=== PATIENT | male | born 1965 | race Hispanic/Latino ===

== ENCOUNTER 2016-06-29 13:21 | Emergency (ER) | payer OTHER ==
[2016-06-29] MEDS ORDERED: Ondansetron HCl/PF 4 MG/2 ML Vial ONE (13:57)
[2016-06-29] MEDS ORDERED: Nitroglycerin 2% Ointment 1 INCH/1 GM Packet ONE (13:58)
[2016-06-29] MEDS ORDERED: Morphine Sulfate 2 MG/ML SYRINGE ONE (13:58)
[2016-06-29 14:10] LABS: Hematocrit 36.6 % (42.0-52.0); Red Blood Cell (RBC) Count 3.72 mill/uL (4.70-6.10); White Blood Cell (WBC) Count 6.5 thou/uL (4.8-10.8)
[2016-06-29 14:11] LABS: #Eosinphils 0.2 thou/uL (0.0-0.7); #Lymphocytes 1.2 thou/uL (1.20-3.40); #Monocytes 0.4 thou/uL (0.11-0.59); #Neutrophils 4.7 thou/uL (1.40-6.50); %Basophils 0.8 % (0.0-1.0); %Lymphocytes 17.8 % (21.0-51.0); %Monocytes 5.7 % (0.0-10.0); Mean Platelet Volume 8.1 fL (7.4-10.4)
[2016-06-29 14:12] LABS: #Basophils 0.1 thou/uL (0.0-0.2)
[2016-06-29 14:15] LABS: ALT (SGPT) 17 U/L (0-55); AST (SGOT) 14 U/L (5-34); Alkaline Phosphatase 44 U/L (40-150); Anion Gap 19 mmol/L (10-20); BUN (Urea Nitrogen) 46 mg/dL (8.4-25.7); Bilirubin, Total 0.6 mg/dL (0.2-1.2); Calc. Creatinine Clearance 0 mL/min (70-130); Calcium 7.6 mg/dL (7.8-10.44); Carbon Dioxide 28 mmol/L (22-29); Chloride 93 mmol/L (98-107); Estimated GFR-MDRD 7; Globulin 3.2 g/dL (2.4-3.5); PTT 32.8 SEC (22.9-36.1); Protein, Total 7.1 g/dL (6.0-8.3); Prothrombin Time 14.3 SEC (12.0-14.7); Troponin I 0.025 ng/mL (< 0.028)
[2016-06-29] MEDS ORDERED: Furosemide 40 MG/4 ML VIAL ONE (15:03)
--- NOTE | 2016-06-29 15:03 | RAD ---
CHEST 2 VIEWS: HISTORY: Dyspnea. Chest pain. FINDINGS: The cardiac silhouette is unremarkable. Pulmonary vasculature is upper limits of normal. Mild reti culonodular interstitial prominence is present throughout each lung. There is no confluent airspace consolidation, pneumothorax, or pleural fluid evident. IMPRESSION: Borderline pulmonary vascular congestion without florid edema evident. POS: [facility]
--- NOTE | 2016-06-29 15:42 | ERRECORD ---
[facility] EMERGENCY RECORD HPI CHEST PAIN (14:14 JOHE) CHIEF COMPLAINT: Patient presents for evaluation of chest pain, ongoing. HISTORIAN: History provided by patient, Pt. reports approx. 3 days of constant, sternal, sharp chest pain radiating to the back, without migration. Patient reports pain is constant but worse with deep breathing, and with exertion. Patient says pain was worse last night at dialysis, but did not come to ED then. Patient also reports some cold sweating and nausea when at work the other day, but not currently. Feels heart is beating fast, and has SANDS, orthopnea, and PND. + BLE edema, no leg pain. No F&C, cough or other symptoms reported. No recent travel. No personal or FH of CAD, DVT/PE, or connective tissue disorders reported. LOCATION: Symptoms are localized, most severe in substernal area, Pain radiates, to the back. QUALITY: Pain is sharp in nature, described as stabbing. SEVERITY: Maximum severity of symptoms severe, Currently symptoms are moderate. TIME COURSE: Symptoms are improving, are constant. ASSOCIATED WITH: No associated chills, No associated cough, No associated diaphoresis, No associated fever, No associated nausea, Associated with palpitations, Associated with shortness of breath, No associated trauma, No associated upper respiratory infection, No associated vomiting, Denies any other complaints. EXACERBATED BY: Patient's condition exacerbated by deep breaths, Patient's condition exacerbated by exercise. RELIEVED BY: Patient's condition relieved by rest. HEART SCORE: Patients history is Slightly Suspicious (0), Patients ECG is normal (0), Patients age is greater than 45 and less than 65 (1), Patient has equal to or greater than 3 risk factors or history of atherosclerotic disease (2). WELLS CRITERIA FOR PE: No clinical signs and symptoms of a DVT (0), Patient has, or is likely to have, a primary diagnosis of PE (3), Patient's heart rate is less than 100 (0), Patient has no history of immobilization within 3 days, nor any surgical history within the past 4 weeks (0), Patient has not had an objectively diagnosed PE or DVT previously (0), Patient does not have hemoptysis (0), Patient has not had treatment for malignancy within the last 6 months, nor palliative (0), Total 3. ROS (14:18 JOHE) CONSTITUTIONAL: Historian denies chills, denies fatigue, denies fever, denies malaise, denies night sweats, denies weakness, reports weight loss. EYES: Historian denies eye pain, denies eye redness, denies vision changes. ENT: Historian denies otalgia, denies rhinorrhea, denies sinus pain, denies sore throat. &a-1R&a+25V*p+0X*b1668S*c152B*c15G*c2P*p-0X&a-25V&a+1RName: Ministerio Vanegas : 1965 M50 MedRec: [id number] AcctNum: [id number] Prepared: SatJun 29, 2016 18:49 by Interface Page 1 of 5 pMD [facility] EMERGENCY RECORD CARDIOVASCULAR: Historian reports chest pain, pleuritic, radiation to, the back, Historian denies diaphoresis, reports dyspnea on exertion, reports edema, reports orthopnea, denies syncope, reports palpitations. RESPIRATORY: Historian denies cough, denies shortness of breath, denies sputum, denies stridor, denies wheezing. GI: Historian denies abdominal pain, denies diarrhea, denies nausea, denies vomiting. MUSCULOSKELETAL: Historian denies fall, denies joint redness, denies joint swelling, denies myalgias, denies neck pain. SKIN: Historian denies rash, denies skin changes. NEUROLOGIC: Historian denies dizziness, denies focal weakness, denies gait changes, denies headache, denies paresthesias. HEMO/LYMPHATIC: Historian reports abnormal blood clotting, reports petechiae. NOTES: All systems reviewed, negative except as described above. PAST MEDICAL HISTORY (13:27 BDON) MEDICAL HISTORY: Notes: End state renal disease on dialysis, Flu vaccine not up to date, Tetanus not up to date, Pneumococcal vaccine not up to date, Past medical history includes cardiac history, congestive heart failure, Notes: HEPATITIS C, Notes: BILAT COLLAPSED LUNG, Past medical history includes history of diabetes, Past medical history includes history of hypertension. MALE SURGICAL HISTORY: Dialysis shunt left upper arm, BENIGN MASS REMOVED FROM ABD, LT HAND SX, Surgical history of appendectomy, Surgical history of cholecystectomy, Surgical history of hernia repair. PSYCHIATRIC HISTORY: No previous psychiatric history. SOCIAL HISTORY: Patient drinks socially, rarely, Patient denies drug use, Patient has no smoking history. KNOWN ALLERGIES aspirin iodine CURRENT MEDICATIONS (13:25 BDON) None VITAL SIGNS VITAL SIGNS: BP: 177/102, Pulse: 99, Resp: 18, Pain: 7, O2 sat: 99, Time: 06/29/2016 13:27. (13:27 BDON) BP: 170/93, Pulse: 88, Resp: 18, Pain: 7, O2 sat: 98, Time: 06/29/2016 13:45. (13:45 BDON) BP: 144/75, Pulse: 84, Resp: 16, Temp: 97.7 (Oral), O2 sat: 100, Time: 06/29/2016 14:00. (14:00 BDON) BP: 171/103, Pulse: 88, Resp: 15, O2 sat: 99, Time: 06/29/2016 14:30. (14:30 BDON) BP: 176/93, Pulse: 82, Resp: 15, Pain: 3, O2 sat: 98, Time: 06/29/2016 &a-1R&a+25V*p+0X*[id number]*c152B*c15G*c2P*p-0X&a-25V&a+1RName: Ministerio Vanegas : 1965 M50 MedRec: [id number] AcctNum: [id number] Prepared: SatJun 29, 2016 18:49 by Interface Page 2 of 5 pMD [facility] EMERGENCY RECORD 15:00. (15:00 BDON) BP: 150/77, Pulse: 83, Resp: 15, Pain: 2, O2 sat: 96, Time: 06/29/2016 15:44. (15:44 BDON) BP: 190/95, Pulse: 83, Resp: 16, Pain: 0, O2 sat: 98 on Room Air, Time: 06/29/2016 16:25. (16:25 BDON) BP: 182/97, Pulse: 82, Resp: 14, Pain: 0, Time: 06/29/2016 16:34. (16:34 BDON) BP: 167/100, Pulse: 81, Pain: 0, O2 sat: 97, Time: 06/29/2016 17:21. (17:21 BDON) PHYSICAL EXAM (14:19 JOHE) CONSTITUTIONAL: Vital Signs Reviewed, Patient appears non toxic, Patient alert and oriented to person, place and time. HEAD: Head exam normal, Head exam included findings of head atraumatic, normocephalic. EYES: Eye exam normal, Eye exam included findings of eyelids normal to inspection, Pupils equally round and reactive to light, Extraocular muscles intact, Conjunctiva normal, Sclera normal. ENT: ENT exam normal, Pharynx exam normal, not injected, no swelling, symmetrical, Uvula exam normal, midline, no edema, Mouth exam normal, mucous membranes moist, no drooling, no lesions, no lacerations, no tongue elevation. NECK: Neck exam normal, Neck exam included findings of normal range of motion, Trachea midline, no carotid bruits, no jugular venous distention, no tenderness, no contusions, no ecchymosis. RESPIRATORY CHEST: Respiratory exam included findings of no respiratory distress, Breath sounds not clear, No wheezing, Rales present, No rhonchi, Breath sounds not absent, Tenderness, mild, to the sternum, faint BLL crackles, otherwise CTAB. CARDIOVASCULAR: Cardiovascular assessment normal, Heart rate regular rate and rhythm, Heart sounds normal, Carotids normal, Pedal pulses normal, RRR, no R/M/G. + pulses all ext., no bruits; 2+ edema BLE. ABDOMEN MALE: Abdominal exam normal, Abdominal exam included findings of abdomen nontender, Bowel sounds normal, no distension, no mass, no pulsatile masses, no peritoneal signs, no rigidity, no guarding, no rebound, No abdominal masses or pulsations, no tenderness, no bruits. BACK: Back exam normal, Back exam included findings of normal inspection, range of motion normal. UPPER EXTREMITY: Upper extremity exam normal, Upper extremity exam included findings of inspection normal, Range of motion normal, Motor strength normal, Radial pulse normal. LOWER EXTREMITY: Lower extremity exam normal, Lower extremity exam included findings of inspection normal, Range of motion normal, Motor strength normal, Posterior tibial pulse normal, Pedal pulse normal, Edema present, to bilateral lower extremities, pitting, +2, no calf tenderness, no palpable cords, No calf tenderness, redness or palpable cords. &a-1R&a+25V*p+0X*k9785B*c152B*c15G*c2P*p-0X&a-25V&a+1RName: Ministerio Vanegas : 1965 M50 MedRec: [id number] AcctNum: [id number] Prepared: SatJun 29, 2016 18:49 by Interface Page 3 of 5 D [facility] EMERGENCY RECORD NEURO: Neuro exam normal, Nuvia coma scale 15, Neuro exam findings include patient oriented to person, place and time, Speech normal, Gait normal, Cranial nerves intact, no focal motor deficits, no focal sensory deficits. SKIN: Skin exam normal, Skin exam included findings of skin warm, dry, and normal in color, no rash. EKG INTERPRETATION (13:29 JOHE) 12 LEAD EKG INTERPRETATION: 12 lead EKG interpreted by Emergency Department Physician at time of study, 12 lead EKG shows normal sinus rhythm, Rate (beats per minute): 97, with no ectopics, Compared with previous EKG from, 2014, Similar to old EKG, ST segments normal, T waves, inverted, Leads affected: V1, Leads affected: V2, [place] normal, Other findings include:, left atrial enlargement, Appears similar to EKG from 03/2015. RADIOLOGYINTERPRETATION (14:13 JOHE) CHEST: borderline pulmonary vascular congestion without florid pulmonary edema. No consolidation, PTx, or effusions. Normal cardiac silhouette. [employer]: Preliminary review of x-rays by, ED Physician, Radiologist. MEDICATION ADMINISTRATION SUMMARY Drug Name: Lasix injection, Dose Ordered: 60 mg, Route: IV Push, Status: Given, Time: 15:12 06/29/2016, Drug Name: Nitro-Bid transdermal, Dose Ordered: 1 inch, Route: Transdermal, Status: Given, Time: 14:12 06/29/2016, Drug Name: morphine intravenous, Dose Ordered: 2 mg, Route: IV Push, Status: Given, Time: 14:06 06/29/2016, Drug Name: Zofran intravenous, Dose Ordered: 4 mg, Route: IV Push, Status: Given, Time: 14:05 06/29/2016, Detailed record available in Medication Service section. DOCTOR NOTES TEXT: Discussed results with patient. Given component of pleurisy, and elevated BNP, recommend hospital observation for possible V/Q scan or BLE Doppler U/S, and for treatment of CHF. Patient agrees to transfer for hospital stay. (14:52 JOHE) Discussed with Dr. Mora, who will accept patient in transfer, but requests we discuss with nephrology about doing CT PE protocol first. However, patient is allergic to idodine (gets hives). (15:18 JOHE) Re-discussed patient with Dr. Mora, who accepts patient in transfer. (15:29 JOHE) DATA REVIEWED: Lab data reviewed, Xray data reviewed, Reviewed EKG. (14:52 JOHE) PROBLEM LIST &a-1R&a+25V*p+0X*[id number]*c152B*c15G*c2P*p-0X&a-25V&a+1RName: Ministerio Vanegas : 1965 [facility] MedRec: [id number] AcctNum: [id number] Prepared: SatJun 29, 2016 18:49 by Interface Page 4 of 5 pMD [facility] EMERGENCY RECORD No recorded problems DIAGNOSIS (15:19 JOHE) FINAL: PRIMARY: Pleuritic chest pain, ADDITIONAL: chf exacerbation. PRESCRIPTION No recorded prescriptions DISPOSITION PATIENT: Disposition Type: Transfer, Disposition: Transfer to [facility], Condition: Good. (15:19 JOHE) Patient left the department. (18:45 BWIS) Wilkerson: SARI=ML Cruz Bettye BWIS=NELLIE Sim Bobbie JOHE=MD Elin Henry &a-1R&a+25V*p+0X*e1654A*c152B*c15G*c2P*p-0X&a-25V&a+1RName: Ministerio Vanegas : 1965 2 MedRec: [id number] AcctNum: [id number] Prepared: SatJun 29, 2016 18:49 by Interface Page 5 of 5 pMD MTDD
--- NOTE | 2016-06-29 15:45 | PICIS ---
[facility] EMERGENCY RECORD TRIAGE (13:24 BDON) TRIAGE NOTES: Mid sternal chest pain radiates to back. (13:24 BDON) PATIENT: NAME: Ministerio Vanegas, AGE: 50, GENDER: male, : Lynette 1965, TIME OF GREET: SatJun 29, 2016 13:21, PREFERRED LANGUAGE: Bulgarian, ETHNICITY: or , ECODE BILLING MAP: [facility], SSN: [id number], Zip Code: [address], KG WEIGHT: 86.18, PHONE: , , , PERSON ID: [id number], PCP: Obdulio CHARLES DONNA. (13:24 BDON) COMPLAINT: CHEST PAIN,BACK PAIN,SOB. (13:24 BDON) ADMISSION: URGENCY: 2 Emergent, ADMISSION SOURCE: Home, TRANSPORT: Walk-in, BED: TRIAGE. (13:24 BDON) ASSESSMENT: Assessment: Midsternal chest pain radiating into back, Symptoms began 3 days ago. (13:27 BDON) TREATMENTS IN PROGRESS: Treatments given Prehospital: none. (13:27 BDON) PROVIDERS: TRIAGE NURSE: Soila Cruz RN. (13:24 BDON) PREVIOUS VISIT ALLERGIES: aspirin, iodine. (13:24 BDON) aspirin, iodine. (13:27 BDON) KNOWN ALLERGIES aspirin iodine CURRENT MEDICATIONS (13:25 BDON) None VITAL SIGNS VITAL SIGNS: BP: 177/102, Pulse: 99, Resp: 18, Pain: 7, O2 sat: 99, Time: 06/29/2016 13:27. (13:27 BDON) BP: 170/93, Pulse: 88, Resp: 18, Pain: 7, O2 sat: 98, Time: 06/29/2016 13:45. (13:45 BDON) BP: 144/75, Pulse: 84, Resp: 16, Temp: 97.7 (Oral), O2 sat: 100, Time: 06/29/2016 14:00. (14:00 BDON) BP: 171/103, Pulse: 88, Resp: 15, O2 sat: 99, Time: 06/29/2016 14:30. (14:30 BDON) BP: 176/93, Pulse: 82, Resp: 15, Pain: 3, O2 sat: 98, Time: 06/29/2016 15:00. (15:00 BDON) BP: 150/77, Pulse: 83, Resp: 15, Pain: 2, O2 sat: 96, Time: 06/29/2016 15:44. (15:44 BDON) BP: 190/95, Pulse: 83, Resp: 16, Pain: 0, O2 sat: 98 on Room Air, Time: 06/29/2016 16:25. (16:25 BDON) BP: 182/97, Pulse: 82, Resp: 14, Pain: 0, Time: 06/29/2016 16:34. (16:34 BDON) BP: 167/100, Pulse: 81, Pain: 0, O2 sat: 97, Time: 06/29/2016 17:21. (17:21 BDON) NURSING ASSESSMENT: CARDIOVASCULAR (13:47 BDON) CONSTITUTIONAL: Patient arrives, via hospital wheelchair, History obtained from patient, Patient appears. &a-1R&a+25V*p+0X*m6101E*c152B*c15G*c2P*p-0X&a-25V&a+1RName: Ministerio Vanegas : 1965 M50 MedRec: [id number] AcctNum: [id number] Prepared: SatJun 29, 2016 18:55 by Interface Page 1 of 11 pMD [facility] EMERGENCY RECORD PAIN: midsternal, back. CARDIOVASCULAR: Cardiovascular assessment findings include heart rate, tachycardic, Heart rhythm normal sinus, Associated with, +1 edema to the lower extremities, pitting. RESPIRATORY/CHEST: Respiratory assessment findings include respiratory effort easy, Respirations regular, Conversing normally, Neck and chest exam findings include trachea midline. SAFETY: Side rails up, Cart/Stretcher in lowest position, Family at bedside, Call light within reach, Hospital ID band on, Patient in view of the nursing station. NURSING PROCEDURE: MAINTENANCE INSTRUCTOR (13:30 BDON) PATIENT IDENTIFIER: Patient actively involved in identification process. MAINTENANCE INSTRUCTOR: Cardiac monitoring indicated for complaint of chest pain, Patient placed on lunchroom monitor, Patient placed on non-invasive blood pressure monitor, Patient placed on continuous pulse oximetry. NURSING PROCEDURE: EKG CHART (13:29 BDON) PATIENT IDENTIFIER: Patient actively involved in identification process. EKG: EKG indicated for complaint of chest pain, 12 lead EKG performed on the left chest. NURSING PROCEDURE: IV (13:45 BDON) PATIENT IDENITIFIER: Patient actively involved in identification process. IV SITE 1: IV therapy indicated for hydration, IV therapy indicated for medication administration, IV therapy indicated for Chest pain, IV established, to the right antecubital, using a 20 gauge catheter, in one attempt, Labs drawn at time of placement, labeled in the presence of the patient and sent to lab. NURSING PROCEDURE: NURSE NOTES NURSES NOTES: Notes: Patient and family aware of delay due to EMS. (15:44 BDON) Patient assisted to bathroom with steady gait. (16:00 BDON) Notes: blood pressure elevated. (16:27 BDON) NURSING PROCEDURE: TRANSPORT TO TESTS (13:44 CCRI) TRANSPORT TO TESTS: Patient transported to x-ray, via cart, Accompanied by x-ray museum exhibit technician, Patient arrived in location at 1348, Patient departed location at 1355. ORDER DETAILS Order Name: B type Natriuretic Peptide, Status: Active, Time: 13:39 06/29/2016, User: ADIEL, - Ordered for: MD Worthington John, &a-1R&a+25V*p+0X*m6122I*c152B*c15G*c2P*p-0X&a-25V&a+1RName: Ministerio Vanegas : 1965 M50 MedRec: [id number] AcctNum: [id number] Prepared: SatJun 29, 2016 18:55 by Interface Page 2 of 11 pMD [facility] EMERGENCY RECORD - Entered by: MD Worthington John - SatJun 29, 2016 13:39, - Quantity: 1, Order Name: MAINTENANCE INSTRUCTOR ED, Status: Done, Time: 13:53 06/29/2016, User: SARI, - Ordered for: MD Worthington John, - Entered by: MD Worthington John - SatJun 29, 2016 13:39, - Quantity: 1, Order Name: Cardiac Profile w/CKMB & Troponin - I, Status: Active, Time: 13:39 06/29/2016, User: ADIEL, - Ordered for: MD Worthington John, - Entered by: MD Worthington John [facility] Jun 29, 2016 13:39, - Quantity: 1, Order Name: CBC with Differential, Status: Active, Time: 13:39 06/29/2016, User: ADIEL, - Ordered for: MD Worthington John, - Entered by: MD Worthington John [facility] Jun 29, 2016 13:39, - Quantity: 1, Order Name: Comprehensive Metabolic Panel, Status: Active, Time: 13:39 06/29/2016, User: ADIEL, - Ordered for: MD Worthington John, - Entered by: MD Worthington John [facility] Jun 29, 2016 13:39, - Quantity: 1, Order Name: EKG 12 Lead in Emergency Room, Status: Active, Time: 13:39 06/29/2016, User: ADIEL, - Ordered for: MD Worthington John, - Entered by: MD Elin [facility] SatJun 29, 2016 13:39, - Quantity: 1, Order Name: ERRT Pulse Oximeter ER, Status: Active, Time: 13:39 06/29/2016, User: ADIEL, - Ordered for: MD Worthington John, - Entered by: MD Elin [facility] SatJun 29, 2016 13:39, - Quantity: 1, Order Name: Protime with INR, Status: Active, Time: 13:39 06/29/2016, User: ADIEL, - Ordered for: MD Worthington John, - Entered by: MD Elin [facility] SatJun 29, 2016 13:39, - Quantity: 1, Order Name: PTT, Status: Active, Time: 13:39 06/29/2016, User: ADIEL, - Ordered for: MD Worthington John, - Entered by: MD Elin [facility] SatJun 29, 2016 13:39, - Quantity: 1, Order Name: SALINE LOCK, Status: Done, Time: 13:53 06/29/2016, User: BDON, - Ordered for: MD Worthington John, - Entered by: MD Elin [facility] Jun 29, 2016 13:39, - Quantity: 1, Order Name: XR Chest Pa & Lat STANDARD, Status: Active, Time: 13:39 06/29/2016, User: ADIEL, - Ordered for: MD Elin, Henry, - Entered by: MD Worthington John - SatJun 29, 2016 13:39, - Quantity: 1. &a-1R&a+25V*p+0X*x3663E*c152B*c15G*c2P*p-0X&a-25V&a+1RName: Ministerio Vanegas : 1965 M50 MedRec: [id number] AcctNum: [id number] Prepared: SatJun 29, 2016 18:55 by Interface Page 3 of 11 pMD [facility] EMERGENCY RECORD MEDICATION ADMINISTRATION SUMMARY Drug Name: Lasix injection, Dose Ordered: 60 mg, Route: IV Push, Status: Given, Time: 15:12 06/29/2016, Drug Name: Nitro-Bid transdermal, Dose Ordered: 1 inch, Route: Transdermal, Status: Given, Time: 14:12 06/29/2016, Drug Name: morphine intravenous, Dose Ordered: 2 mg, Route: IV Push, Status: Given, Time: 14:06 06/29/2016, Drug Name: Zofran intravenous, Dose Ordered: 4 mg, Route: IV Push, Status: Given, Time: 14:05 06/29/2016, Detailed record available in Medication Service section. MEDICATION SERVICE Lasix injection: Order: Lasix injection (furosemide) - Dose: 60 mg : IV Push Schedule: Now Ordered by: Henry Worthington MD Entered by: Henry Worthington MD SatJun 29, 2016 14:52 , Acknowledged by: Alyse Orozco RN SatJun 29, 2016 15:03 Documented as given by: Soila Cruz RN SatJun 29, 2016 15:12 Patient, Medication, Dose, Route and Time verified prior to administration. Amount given: 60 mg, IV SITE #1 IVP, subsequent different medication, Slowly, Catheter placement confirmed via flush prior to administration, IV site without signs or symptoms of infiltration during medication administration, No swelling during administration, No drainage during administration, IV flushed after administration, Correct patient, time, route, dose and medication confirmed prior to administration, Patient advised of actions and side-effects prior to administration, Allergies confirmed and medications reviewed prior to administration, Patient tolerated procedure well, Administered by ML Cullen, Patient in position of comfort, Side rails up, Cart in lowest position, Family at bedside, Call light in reach. morphine intravenous: Order: morphine intravenous (morphine sulfate) - Dose: 2 mg : IV Push Schedule: Now Ordered by: Henry Worthington MD Entered by: Henry Worthington MD SatJun 29, 2016 13:40 Documented as given by: Soila Cruz RN SatJun 29, 2016 14:06 Patient, Medication, Dose, Route and Time verified prior to administration. IV SITE #1 IVP, Catheter placement confirmed via flush prior to administration, IV site without signs or symptoms of infiltration during medication administration, No swelling during administration, No drainage during administration, IV flushed after administration, Correct patient, time, route, dose and medication confirmed prior to administration, Patient advised of actions and side-effects prior to administration, Allergies confirmed and medications reviewed prior to administration. : Follow Up : No signs or symptoms of allergic reaction noted, &a-1R&a+25V*p+0X*v1609U*c152B*c15G*c2P*p-0X&a-25V&a+1RName: Ministerio Vanegas : 1965 M50 MedRec: [id number] AcctNum: [id number] Prepared: SatJun 29, 2016 18:55 by Interface Page 4 of 11 pMD [facility] EMERGENCY RECORD _IV SITE #1:_, iv push. (14:15 BDON) Nitro-Bid transdermal: Order: Nitro-Bid transdermal (nitroglycerin) - Dose: 1 inch : Transdermal Schedule: Now Ordered by: Henry Worthington MD Entered by: Henry Worthington MD SatJun 29, 2016 13:39 Documented as given by: Soila Cruz RN SatJun 29, 2016 14:12 Patient, Medication, Dose, Route and Time verified prior to administration. Amount given: 1 inch, Advised not to ambulate without assistance, Patient in position of comfort, Side rails up, Cart in lowest position. Zofran intravenous: Order: Zofran intravenous (ondansetron HCl) - Dose: 4 mg : IV Push Schedule: Now Ordered by: Henry Worthington MD Entered by: Henry Worthington MD SatJun 29, 2016 13:40 Documented as given by: Soila Cruz RN SatJun 29, 2016 14:05 Patient, Medication, Dose, Route and Time verified prior to administration. IV SITE #1 IVP. : Follow Up : No signs or symptoms of allergic reaction noted, _IV SITE #1:_, iv push. (14:15 BDON) HPI CHEST PAIN (14:14 JOHE) CHIEF COMPLAINT: Patient presents for evaluation of chest pain, ongoing. HISTORIAN: History provided by patient, Pt. reports approx. 3 days of constant, sternal, sharp chest pain radiating to the back, without migration. Patient reports pain is constant but worse with deep breathing, and with exertion. Patient says pain was worse last night at dialysis, but did not come to ED then. Patient also reports some cold sweating and nausea when at work the other day, but not currently. Feels heart is beating fast, and has SANDS, orthopnea, and PND. + BLE edema, no leg pain. No F&C, cough or other symptoms reported. No recent travel. No personal or FH of CAD, DVT/PE, or connective tissue disorders reported. LOCATION: Symptoms are localized, most severe in substernal area, Pain radiates, to the back. QUALITY: Pain is sharp in nature, described as stabbing. SEVERITY: Maximum severity of symptoms severe, Currently symptoms are moderate. TIME COURSE: Symptoms are improving, are constant. ASSOCIATED WITH: No associated chills, No associated cough, No associated diaphoresis, No associated fever, No associated nausea, Associated with palpitations, Associated with shortness of breath, No associated trauma, No associated upper respiratory infection, No associated vomiting, Denies any other complaints. EXACERBATED BY: Patient's condition exacerbated by deep &a-1R&a+25V*p+0X*w2321J*c152B*c15G*c2P*p-0X&a-25V&a+1RName: Ministerio Vanegas : 1965 M50 MedRec: [id number] AcctNum: [id number] Prepared: SatJun 29, 2016 18:55 by Interface Page 5 of 11 pMD [facility] EMERGENCY RECORD breaths, Patient's condition exacerbated by exercise. RELIEVED BY: Patient's condition relieved by rest. HEART SCORE: Patients history is Slightly Suspicious (0), Patients ECG is normal (0), Patients age is greater than 45 and less than 65 (1), Patient has equal to or greater than 3 risk factors or history of atherosclerotic disease (2). WELLS CRITERIA FOR PE: No clinical signs and symptoms of a DVT (0), Patient has, or is likely to have, a primary diagnosis of PE (3), Patient's heart rate is less than 100 (0), Patient has no history of immobilization within 3 days, nor any surgical history within the past 4 weeks (0), Patient has not had an objectively diagnosed PE or DVT previously (0), Patient does not have hemoptysis (0), Patient has not had treatment for malignancy within the last 6 months, nor palliative (0), Total 3. ROS (14:18 JOHE) CONSTITUTIONAL: Historian denies chills, denies fatigue, denies fever, denies malaise, denies night sweats, denies weakness, reports weight loss. EYES: Historian denies eye pain, denies eye redness, denies vision changes. ENT: Historian denies otalgia, denies rhinorrhea, denies sinus pain, denies sore throat. CARDIOVASCULAR: Historian reports chest pain, pleuritic, radiation to, the back, Historian denies diaphoresis, reports dyspnea on exertion, reports edema, reports orthopnea, denies syncope, reports palpitations. RESPIRATORY: Historian denies cough, denies shortness of breath, denies sputum, denies stridor, denies wheezing. GI: Historian denies abdominal pain, denies diarrhea, denies nausea, denies vomiting. MUSCULOSKELETAL: Historian denies fall, denies joint redness, denies joint swelling, denies myalgias, denies neck pain. SKIN: Historian denies rash, denies skin changes. NEUROLOGIC: Historian denies dizziness, denies focal weakness, denies gait changes, denies headache, denies paresthesias. HEMO/LYMPHATIC: Historian reports abnormal blood clotting, reports petechiae. NOTES: All systems reviewed, negative except as described above. PAST MEDICAL HISTORY (13:27 BDON) MEDICAL HISTORY: Notes: End state renal disease on dialysis, Flu vaccine not up to date, Tetanus not up to date, Pneumococcal vaccine not up to date, Past medical history includes cardiac history, congestive heart failure, Notes: HEPATITIS C, Notes: BILAT COLLAPSED LUNG, Past medical history includes history of diabetes, Past medical history includes history of hypertension. MALE SURGICAL HISTORY: Dialysis shunt left upper arm, &a-1R&a+25V*p+0X*b0570O*c152B*c15G*c2P*p-0X&a-25V&a+1RName: Ministerio Vanegas : 1965 M50 MedRec: [id number] AcctNum: [id number] Prepared: SatJun 29, 2016 18:55 by Interface Page 6 of 11 pMD [facility] EMERGENCY RECORD BENIGN MASS REMOVED FROM ABD, LT HAND SX, Surgical history of appendectomy, Surgical history of cholecystectomy, Surgical history of hernia repair. PSYCHIATRIC HISTORY: No previous psychiatric history. SOCIAL HISTORY: Patient drinks socially, rarely, Patient denies drug use, Patient has no smoking history. PHYSICAL EXAM (14:19 JOHE) CONSTITUTIONAL: Vital Signs Reviewed, Patient appears non toxic, Patient alert and oriented to person, place and time. HEAD: Head exam normal, Head exam included findings of head atraumatic, normocephalic. EYES: Eye exam normal, Eye exam included findings of eyelids normal to inspection, Pupils equally round and reactive to light, Extraocular muscles intact, Conjunctiva normal, Sclera normal. ENT: ENT exam normal, Pharynx exam normal, not injected, no swelling, symmetrical, Uvula exam normal, midline, no edema, Mouth exam normal, mucous membranes moist, no drooling, no lesions, no lacerations, no tongue elevation. NECK: Neck exam normal, Neck exam included findings of normal range of motion, Trachea midline, no carotid bruits, no jugular venous distention, no tenderness, no contusions, no ecchymosis. RESPIRATORY CHEST: Respiratory exam included findings of no respiratory distress, Breath sounds not clear, No wheezing, Rales present, No rhonchi, Breath sounds not absent, Tenderness, mild, to the sternum, faint BLL crackles, otherwise CTAB. CARDIOVASCULAR: Cardiovascular assessment normal, Heart rate regular rate and rhythm, Heart sounds normal, Carotids normal, Pedal pulses normal, RRR, no R/M/G. + pulses all ext., no bruits; 2+ edema BLE. ABDOMEN MALE: Abdominal exam normal, Abdominal exam included findings of abdomen nontender, Bowel sounds normal, no distension, no mass, no pulsatile masses, no peritoneal signs, no rigidity, no guarding, no rebound, No abdominal masses or pulsations, no tenderness, no bruits. BACK: Back exam normal, Back exam included findings of normal inspection, range of motion normal. UPPER EXTREMITY: Upper extremity exam normal, Upper extremity exam included findings of inspection normal, Range of motion normal, Motor strength normal, Radial pulse normal. LOWER EXTREMITY: Lower extremity exam normal, Lower extremity exam included findings of inspection normal, Range of motion normal, Motor strength normal, Posterior tibial pulse normal, Pedal pulse normal, Edema present, to bilateral lower extremities, pitting, +2, no calf tenderness, no palpable cords, No calf tenderness, redness or palpable cords. NEURO: Neuro exam normal, [place] coma scale 15, Neuro exam findings include patient oriented to person, place and time, Speech normal, Gait normal, Cranial nerves intact, no focal motor deficits, &a-1R&a+25V*p+0X*n8481M*c152B*c15G*c2P*p-0X&a-25V&a+1RName: Ministerio Vanegas : 1965 M50 MedRec: [id number] AcctNum: [id number] Prepared: SatJun 29, 2016 18:55 by Interface Page 7 of 11 pMD [facility] EMERGENCY RECORD no focal sensory deficits. SKIN: Skin exam normal, Skin exam included findings of skin warm, dry, and normal in color, no rash. LAB INTERPRETATION (15:30 JOHE) INTERPRETATION: I reviewed the lab results, CBC abnormal, Hemoglobin decreased, Hematocrit decreased, Chemistry abnormal, Glucose elevated, BUN elevated, Creatinine elevated, Cardiac enzymes normal, PT normal, PTT normal, BNP 2877. EVENTS TRANSFER: Triage to Emergency Triage. (SatJun 29, 2016 13:24 BDON) Emergency Triage to Emergency Room -03. (13:25 BDON) Removed from Emergency Emergency Room -03. (18:45 BWIS) RADIOLOGYINTERPRETATION (14:13 JOHE) CHEST: borderline pulmonary vascular congestion without florid pulmonary edema. No consolidation, PTx, or effusions. Normal cardiac silhouette. CREDIT ASSOCIATE: Preliminary review of x-rays by, ED Physician, Radiologist. EKG INTERPRETATION (13:29 JOHE) 12 LEAD EKG INTERPRETATION: 12 lead EKG interpreted by Emergency Department Physician at time of study, 12 lead EKG shows normal sinus rhythm, Rate (beats per minute): 97, with no ectopics, Compared with previous EKG from, 2014, Similar to old EKG, ST segments normal, T waves, inverted, Leads affected: V1, Leads affected: V2, [place] normal, Other findings include:, left atrial enlargement, Appears similar to EKG from 03/2015. O2SAT INTERPRETATION (15:31 JOHE) O2SAT: Single pulse oximetry, Oxygen saturation 98%, on room air, Oxygen saturation interpretation: Normal, No intervention required. DOCTOR NOTES TEXT: Discussed results with patient. Given component of pleurisy, and elevated BNP, recommend hospital observation for possible V/Q scan or BLE Doppler U/S, and for treatment of CHF. Patient agrees to transfer for hospital stay. (14:52 JOHE) Discussed with Dr. Mora, who will accept patient in transfer, but requests we discuss with nephrology about doing CT PE protocol first. However, patient is allergic to idodine (gets hives). (15:18 JOHE) Re-discussed patient with Dr. Mora, who accepts patient in transfer. (15:29 JOHE) DATA REVIEWED: Lab data reviewed, Xray data reviewed, Reviewed EKG. (14:52 JOHE) &a-1R&a+25V*p+0X*e9823M*c152B*c15G*c2P*p-0X&a-25V&a+1RName: Ministerio Vanegas : 1965 M50 MedRec: [id number] AcctNum: [id number] Prepared: SatJun 29, 2016 18:55 by Interface Page 8 of 11 pMD [facility] EMERGENCY RECORD PROBLEM LIST No recorded problems DIAGNOSIS (15:19 JOHE) FINAL: PRIMARY: Pleuritic chest pain, ADDITIONAL: chf exacerbation. DISPOSITION PATIENT: Disposition Type: Transfer, Disposition: Transfer to [facility], Condition: Good. (15:19 JOHE) Patient left the department. (18:45 BWIS) PRESCRIPTION No recorded prescriptions IMAGING *EKG: Image captured from scanner. (15:46 BWIS) *MEMORANDUM OF TRANSFER: Image captured from scanner. (15:46 BWIS) CONSENTS: Image captured from scanner. (15:47 BWIS) TRANSFER WORK SHEET: Image captured from scanner. (17:43 BWIS) *SUPPLY CHARGE SHEET: Image captured from scanner. (17:43 BWIS) ADMIN (15:32 JOHE) DIGITAL SIGNATURE: MD Worthington John. RESULTS RADIOLOGY: XR Chest Pa & Lat STANDARD Observe DT: SatJun 29, 2016 13:41, CXR2 CHEST 2 VIEWS: HISTORY: Dyspnea. Chest pain. FINDINGS: The cardiac silhouette is unremarkable. Pulmonary vasculature is upper limits of normal. Mild reti culonodular interstitial prominence is present throughout each lung. There is no confluent airspace consolidation, pneumothorax, or pleural fluid evident. IMPRESSION: Borderline pulmonary vascular congestion without florid edema evident. POS: [facility] . (15:32 JOHE) LABORATORY: PTT Collection DT: SatJun 29, 2016 13:51, See comment below , Anticoagulant? NONE &a-1R&a+25V*p+0X*u8886V*c152B*c15G*c2P*p-0X&a-25V&a+1RName: Guilherme Ministerio : 1965 M50 MedRec: [id number] AcctNum: [id number] Prepared: SatJun 29, 2016 18:55 by Interface Page 9 of 11 pMD [facility] EMERGENCY RECORD Medical Necessity SUSPECT COAGULOPATHY , PTT 32.8 SEC, Range (22.9-36.1). (14:22 [facility]) Protime with INR Collection DT: SatJun 29, 2016 13:51, See comment below , Anticoagulant? NONE Medical Necessity SUSPECT COAGULOPATHY , Prothrombin Time 14.3 SEC, Range (12.0-14.7), INR-International Normal Ratio 1.1 , ATTENTION: READ CAREFULLY , The, recommended therapeutic ranges for oral anticoagulant treatments are: , , Low Intensity: 1.5 - 2.0 Moderate Intensity: 2.0, - 3.0 High Intensity (1): 2.5 - 3.5 High, Intensity (2): 3.0 - 4.0 CRITICAL: >, 4.0 . (14:22 [facility]) CBC with Differential Collection DT: SatJun 29, 2016 13:51, White Blood Cell (WBC) Count 6.5 thou/uL, Range (4.8-10.8), *Red Blood Cell (RBC) Count 3.72 - L mill/uL, Range (4.70-6.10), *Hemoglobin 11.6 - L g/dL, Range (14.0-18.0), *Hematocrit 36.6 - L %, Range (42.0-52.0), *Mean Corpuscular Volume 98.5 - H fL, Range (80.0-94.0), *Mean Corpuscular Hemoglobin 31.3 - H pg, Range (27.0-31.0), *Mean Corpuscular HGB CONC 31.7 - L g/dL, Range (32.0-36.0), *RBC Distribution Width 15.5 - H %, Range (11.5-14.5), Platelet Count 152 thou/uL, Range (130-400), Mean Platelet Volume 8.1 fL, Range (7.4-10.4), %Neutrophils 72.6 %, Range (42.0-75.0), *%Lymphocytes 17.8 - L %, Range (21.0-51.0), %Monocytes 5.7 %, Range (0.0-10.0), %Eosinophils 3.0 %, Range (0.0-10.0), %Basophils 0.8 %, Range (0.0-1.0), #Neutrophils 4.7 thou/uL, Range (1.40-6.50), #Lymphocytes 1.2 thou/uL, Range (1.20-3.40), #Monocytes 0.4 thou/uL, Range (0.11-0.59), #Eosinphils 0.2 thou/uL, Range (0.0-0.7), #Basophils 0.1 thou/uL, Range (0.0-0.2). (14:22 ADIEL) Comprehensive Metabolic Panel Collection DT: SatJun 29, 2016 13:51, Sodium 136 mmol/L, Range (136-145), Potassium 3.8 mmol/L, Range (3.5-5.1), *Chloride 93 - L mmol/L, Range (98-107), Carbon Dioxide 28 mmol/L, Range (22-29), &a-1R&a+25V*p+0X*z1649Y*c152B*c15G*c2P*p-0X&a-25V&a+1RName: Guilherme Ministerio : 1965 M50 MedRec: [id number] AcctNum: [id number] Prepared: SatJun 29, 2016 18:55 by Interface Page 10 of 11 pMD [facility] EMERGENCY RECORD Anion Gap 19 mmol/L, Range (10-20), *BUN (Urea Nitrogen) 46 - H mg/dL, Range (8.4-25.7), *Creatinine 8.01 - H mg/dL, Range (0.7-1.3), Estimated GFR-MDRD 7 , Reference Range for Estimated GFR: Greater than 90, mL/min/1.73 m2 NOTE: The MDRD equation has not been validated for use, with the elderly (over 70 years of age), women, patients with, serious comorbid condition or persons with extremes of body size, muscle, mass, or nutritional status. , *Glucose 209 - H mg/dL, Range (70-105), *Calcium 7.6 - L mg/dL, Range (7.8-10.44), Bilirubin, Total 0.6 mg/dL, Range (0.2-1.2), Protein, Total 7.1 g/dL, Range (6.0-8.3), NOTE: Plasma values are generally 0.3 to 0.5 g/dL higher than serum values, due to the presence of fibrinogen. , Albumin 3.9 g/dL, Range (3.5-5.0), Globulin 3.2 g/dL, Range (2.4-3.5), Alb/Glob Ratio 1.2 g/dL, Range (1.2-2.2), Alkaline Phosphatase 44 U/L, Range (40-150), AST (SGOT) 14 U/L, Range (5-34), ALT (SGPT) 17 U/L, Range (0-55). (14:22 ADIEL) Cardiac Profile w/CKMB & TropI Collection DT: SatJun 29, 2016 13:51, CKMB 4.0 ng/mL, Range (0-6.6), Troponin I 0.025 ng/mL, Range (< 0.028), Reference Range , 0.00 - 0.028 ng/mL Negative 0.029 - 0.29 ng/mL , Indeterminate Greater or Equal to 0.3 ng/mL Strongly suggests MO , . (14:22 ADIEL) B type Natriuretic Peptide Collection DT: SatJun 29, 2016 13:51, *B type Natriuretic Peptide 2877.7 - H pg/mL, Range (0-100). (15:13 ADIEL) Wilkerson: SARI=ML Cruz Bettye BWIS=NELLIE Sim Bobbie CCRI=CLARICE Hood Clement[place] JOHE=MD Elin, Henry &a-1R&a+25V*p+0X*o2891N*c152B*c15G*c2P*p-0X&a-25V&a+1RName: Ministerio Vanegas : 1965 M50 MedRec: [id number] AcctNum: [id number] Prepared: SatJun 29, 2016 18:55 by Interface Page 11 of 11 pMD MTDD
== END 2016-06-29 17:35 | disposition short-term general hospital (02) ==
LOC: NAV ERS 13:21
DX: I50.9 Heart failure, unspecified (principal); B19.20 Unspecified viral hepatitis C without hepatic coma; E11.9 Type 2 diabetes mellitus without complications; I10 Essential (primary) hypertension
CPT/HCPCS: 71020; 80053; 82553; 83880; 84484; 85025; 85610; 85730; 93005; 94760; 96374; 96375; J1940; J2270; J2405

== ENCOUNTER 2016-07-13 22:10 | Emergency (ER) | payer OTHER ==
[2016-07-13] MEDS ORDERED: Meclizine HCl 25 MG TAB ONE (22:28)
[2016-07-13 22:44] LABS: #Basophils 0.1 thou/uL (0.0-0.2); #Eosinphils 0.2 thou/uL (0.0-0.7); #Monocytes 0.7 thou/uL (0.11-0.59); %Basophils 0.9 % (0.0-1.0); %Eosinophils 1.8 % (0.0-10.0); %Lymphocytes 11.1 % (21.0-51.0); %Monocytes 7.4 % (0.0-10.0); Hematocrit 34.4 % (42.0-52.0); Mean Platelet Volume 8.9 fL (7.4-10.4); Red Blood Cell (RBC) Count 3.53 mill/uL (4.70-6.10); White Blood Cell (WBC) Count 8.9 thou/uL (4.8-10.8)
--- NOTE | 2016-07-13 22:46 | RAD ---
CHEST PORTABLE ONE VIEW 07/13/16 COMPARISON: Prior chest one portable view dated June 29, 2016. FINDINGS: There is persistent moderate cardiomegaly with moderate pulmonary vascular congestion. There is mild bilateral interstitial opacities. No pleural effusion is evident. No acute osseous abnormality is e vident. IMPRESSION: Findings most suspicious for mild CHF or fluid overload. POS: [facility]
[2016-07-13 22:55] LABS: ALT (SGPT) 8 U/L (0-55); AST (SGOT) 12 U/L (5-34); Alkaline Phosphatase 46 U/L (40-150); Anion Gap 18 mmol/L (10-20); BUN (Urea Nitrogen) 37 mg/dL (8.4-25.7); Bilirubin, Total 0.7 mg/dL (0.2-1.2); Calc. Creatinine Clearance 0 mL/min (70-130); Calcium 8.5 mg/dL (7.8-10.44); Carbon Dioxide 31 mmol/L (22-29); Chloride 90 mmol/L (98-107); Estimated GFR-MDRD 8; Globulin 3.2 g/dL (2.4-3.5); Protein, Total 7.1 g/dL (6.0-8.3)
[2016-07-13 22:56] LABS: Troponin I 0.051 ng/mL (< 0.028)
[2016-07-13] MEDS ORDERED: Furosemide 40 MG/4 ML VIAL ONE (23:09)
[2016-07-14] MEDS ORDERED: Ondansetron HCl/PF 4 MG/2 ML Vial ONE (00:04)
[2016-07-14 00:27] LABS: Troponin I 0.046 ng/mL (< 0.028)
[2016-07-14] MEDS ORDERED: HYDROcodone/Acetaminophen 10/325 mg Tablet ONE ×2 (00:39→00:40)
--- NOTE | 2016-07-14 01:13 | ERRECORD ---
[facility] EMERGENCY RECORD HPI SHORTNESS OF BREATH (22:24 SHAN) CHIEF COMPLAINT: Patient presents for evaluation of shortness of breath. HISTORIAN: History provided by patient, Relates that dog had tangled its chain around him. He developed some shortness of breath and brief chest pain. Then ears started ringing. Came in for evaluation. Chest pain was vague. Smoked in the past. SEVERITY: Maximum severity of symptoms moderate, Currently symptoms are mild. ROS (22:25 SHAN) CONSTITUTIONAL: Negative constitutional review of systems. EYES: Negative eye review of systems. ENT: Negative ears, nose, throat review of systems. CARDIOVASCULAR: Negative cardiovascular review of systems. RESPIRATORY: Historian reports shortness of breath. GI: Negative gastrointestinal review of systems. MUSCULOSKELETAL: Negative musculoskeletal review of systems. SKIN: Negative skin review of systems. NEUROLOGIC: Negative neurologic review of systems. NOTES: All systems reviewed, negative except as described above. PAST MEDICAL HISTORY (22:18 KASA) MEDICAL HISTORY: Flu vaccine up to date, Past medical history includes cardiac history, cardiomyopathy, congestive heart failure, valvular heart disease, mitral valve regurgitation, Cardiac Cath on 07/05/2016; Ischemic Cardiomyopathy; Latest EF -35-40%, Past medical history includes history of diabetes, Type II, Past medical history includes gastrointestinal disease, Hepatitis C, Past medical history includes history of hyperlipidemia, high cholesterol, currently being treated, Past medical history includes history of hypertension, which has been treated, Patient is compliant, Past medical history includes pulmonary disease, Lung collapsed, Past medical history includes renal disease, end stage renal disease. MALE SURGICAL HISTORY: BENIGN MASS REMOVED FROM ABD, LT HAND SX, Surgical history of appendectomy, Surgical history of cholecystectomy, Surgical history of hernia repair. PSYCHIATRIC HISTORY: No previous psychiatric history. SOCIAL HISTORY: Patient drinks socially, rarely, Patient denies drug use, Patient has no smoking history. KNOWN ALLERGIES aspirin iodine CURRENT MEDICATIONS Ranexa: TABLET, EXTENDED RELEASE 12 HR : Strength - 500 mg : ORAL Patient Dose: 2 tab(s) Oral 3 times a day. (22:25 KASA) &a-1R&a+25V*p+0X*d4693X*c152B*c15G*c2P*p-0X&a-25V&a+1RName: Ministerio Vanegas : 1965 M50 MedRec: [id number] AcctNum: [id number] Prepared: Sat Jul 14, 2016 00:58 by Interface Page 1 of 4 pMD [facility] EMERGENCY RECORD Tylenol-Codeine #3: TABLET : Strength - 300 mg-30 mg : ORAL Patient Dose: 1 tab(s) Oral every 4 hours prn. (22:47 KASA) calcium acetate: TABLET : Strength - 667 mg : ORAL Patient Dose: 2 tab(s) Oral 3 times a day. (22:50 KASA) Coreg: TABLET : Strength - 12.5 mg : ORAL Patient Dose: 1 tab(s) Oral 2 times a day. (22:50 KASA) Procrit: VIAL (ML) : Strength - 10,000 unit/mL : INJECTION Patient Dose: 6000 units Subcutaneous.7 day for hemodialysis -states hasn't started yet. (22:52 KASA) Imdur: TABLET, EXTENDED RELEASE 24 HR : Strength - 60 mg : ORAL Patient Dose: 1 tab(s) Oral once a day. (22:52 KASA) Nitrostat: TABLET, SUBLINGUAL : Strength - 0.4 mg : SUBLINGUAL Patient Dose: 1 tab(s) Sublingual.q5 min PRN up to 3 tabs. (22:53 KASA) Crestor: TABLET : Strength - 20 mg : ORAL Patient Dose: 1 tab(s) Oral once a day (at bedtime). (22:54 KASA) Entresto: Patient Dose: 1.1 tab (24.5/25.5) 2 times a day. (22:55 KASA) VITAL SIGNS VITAL SIGNS: BP: 157/93, Pulse: 93, Resp: 19, Temp: 97.8 (Temporal), Pain: 5, O2 sat: 98 on Room Air, Time: 07/13/2016 22:14. (22:14 KASA) BP: 156/94, Pulse: 88, Resp: 17, O2 sat: 99 on Room Air, Time: 07/13/2016 22:30. (22:30 KASA) BP: 156/96, Pulse: 85, Resp: 14, O2 sat: 99 on Room Air, Time: 07/13/2016 23:00. (23:00 KASA) BP: 152/101, Pulse: 86, Resp: 14, O2 sat: 97 on Room Air, Time: 07/13/2016 23:30. (23:30 KASA) BP: 149/95, Pulse: 86, Resp: 17, O2 sat: 97 on Room Air, Time: 07/14/2016 00:00. (Sat Jul 14, 2016 00:00 KASA) BP: 140/84, Pulse: 84, Resp: 15, Temp: 97.9 (Temporal), Pain: 5, O2 sat: 95 on Room Air, Time: 07/14/2016 00:30. (Sat Jul 14, 2016 00:30 KASA) PHYSICAL EXAM (22:25 SHAN) CONSTITUTIONAL: Patient afebrile, Pulse normal, Blood pressure normal, Respiratory rate normal, Normal pulse oximetry, Patient appears non toxic, Patient appears pain free, Patient alert and oriented to person, place and time, Nursing notes reviewed. HEAD: Head exam included findings of head atraumatic, normocephalic. EYES: Eye exam included findings of eyelids normal to inspection, &a-1R&a+25V*p+0X*p6528W*c152B*c15G*c2P*p-0X&a-25V&a+1RName: Ministerio Vanegas : 1965 M50 MedRec: [id number] AcctNum: [id number] Prepared: Sat Jul 14, 2016 00:58 by Interface Page 2 of 4 pMD [facility] EMERGENCY RECORD Pupils equally round and reactive to light, Extraocular muscles intact. ENT: Pharynx exam normal, Uvula exam normal, Tonsil exam normal. NECK: Neck exam included findings of normal range of motion, Trachea midline. RESPIRATORY CHEST: Mild diffuse decreased breath sounds, consistent with old emphysema. CARDIOVASCULAR: Cardiovascular exam included findings of heart rate regular rate and rhythm, Heart sounds normal. ABDOMEN MALE: Abdominal exam included findings of abdomen nontender, Bowel sounds normal. BACK: Back exam normal. UPPER EXTREMITY: Upper extremity exam included findings of inspection normal, Range of motion normal. NEURO: Neuro exam normal. SKIN: Skin exam normal. MEDICATION ADMINISTRATION SUMMARY Drug Name: [place], Dose Ordered: 1 tab(s), Route: Oral, Status: Given, Time: 00:42 07/14/2016, Drug Name: Zofran intravenous, Dose Ordered: 4 mg, Route: IV Push, Status: Given, Time: 00:06 07/14/2016, Drug Name: Lasix injection, Dose Ordered: 80 mg, Route: IV Push, Status: Given, Time: 23:15 07/13/2016, Drug Name: meclizine oral, Dose Ordered: 1 cap(s), Route: Oral, Status: Given, Time: 22:30 07/13/2016, Detailed record available in Medication Service section. DOCTOR NOTES TEXT: Eventually was able to have the heart cath accessed; 06-29-2016: "Left main stenosis-30%; Lad proximal 50%; Global hypokinesis. EF 35-40%" "CAD appears to have actually improved since last cath in 2014.". (23:38 CHANTEL) Chest x-ray with increased fluid. Is due for dialysis in am tomorrow. Has had recent cardiac cath. Has documented ejection fraction of about 35 to 40%. Has dialysis shunt in left arm. Hypertension, diabetes, ischemic cardiomyopathy, chronic systolic, chf and hyperlipidemia. Still makes some urine. Discussed the cause apparent. Will give a moderately large Lasix dose. Believe he will do ok with this and instructions to return earlier if needed. Discussed with showroom sales assistant collection advisor at [place]; discussed the elevated troponin; but the renal failure and recent heart cath. Plan to recheck troponin to evaluate for changes; if higher; send back to [facility]. If not, then allow to proceed with dialysis in am. (Dr. Alfaro). Sensitive to aspirin per his history. (23:00 CHANTEL) Repeat troponin and ckmb even a little better; no chest pain per patient. Will allow to go home with stressed importance of return if chest pain occurs. Risks also discussed as were the option of &a-1R&a+25V*p+0X*t0271O*c152B*c15G*c2P*p-0X&a-25V&a+1RName: Ministerio Vanegas : 1965 M50 MedRec: [id number] AcctNum: [id number] Prepared: Sat Jul 14, 2016 00:58 by Interface Page 3 of 4 pMD [facility] EMERGENCY RECORD transferring to [place]. (Sat Jul 14, 2016 00:34 CHANTEL) DATA REVIEWED: Lab data reviewed, Xray data reviewed, Reviewed EKG, Old records obtained, Old records reviewed. (23:00 CHANTEL) PROBLEM LIST No recorded problems DIAGNOSIS ([facility] Jul 14, 2016 00:37 CHANTEL) FINAL: PRIMARY: tinnitis, ADDITIONAL: chronic systolic chf, elevated troponin, stable; recent cardiac cath and discussion with cardiology, renal failure, chronic, SHORTNESS OF BREATH. PRESCRIPTION No recorded prescriptions DISPOSITION PATIENT: Disposition Type: Discharge, Disposition: *Discharge Home. ([facility] Jul 14, 2016 00:37 CHANTEL) Patient left the department. ([facility] Jul 14, 2016 00:55 KELLY) Wilkerson: KELLY=ML Robertson, Cynthia GOLDEN=MD Joy, Oscar &a-1R&a+25V*p+0X*[id number]*c152B*c15G*c2P*p-0X&a-25V&a+1RName: Ministerio Vanegas : 1965 M50 MedRec: [id number] AcctNum: [id number] Prepared: [facility] Jul 14, 2016 00:58 by Interface Page 4 of 4 pMD MTDD
--- NOTE | 2016-07-14 01:22 | PICIS ---
[facility] EMERGENCY RECORD TRIAGE (SatJul 13, 2016 22:13 KASA) TRIAGE NOTES: SOB with ringing in ears, dry cough, started this afternoon. Was seen last week for chest pain. (SatJul 13, 2016 22:13 KASA) PATIENT: NAME: Ministerio Vanegas, AGE: 50, GENDER: male, : Lynette 1965, TIME OF GREET: SatJul 13, 2016 22:11, PREFERRED LANGUAGE: Kazakh, ETHNICITY: or , ECODE BILLING MAP: [facility] ER, SSN: [id number], Zip Code: [address], KG WEIGHT: 76.20, PHONE: , , , PERSON ID: [id number], PCP: Obdulio CHARLES DONNA. (SatJul 13, 2016 22:13 KASA) COMPLAINT: SOB; RINGING IN EARS. (SatJul 13, 2016 22:13 KASA) ADMISSION: URGENCY: 3 Urgent, ADMISSION SOURCE: Home, TRANSPORT: CAR, BED: ER -02. (SatJul 13, 2016 22:13 KASA) PAIN: Patient complains of pain described as, on a scale 0-10 patient rates pain as 5, Location Headache, Pain is constant, Onset was 07/13/2016, No aggravating factors, No relieving factors. (22:18 KASA) SIRS SCORING: Heart Rate 55-109 (0), Temp range 96.8-101.1 (0), respiratory rate 12-24 (0), Mental Status altered: no (0). (22:18 KASA) TRIAGE SCREENING: Patient denies suicidal ideation, Patient denies presence of domestic violence. (22:18 KASA) PROVIDERS: TRIAGE NURSE: Cynthia Robertson RN. (SatJul 13, 2016 22:13 KASA) VITAL SIGNS: BP 157/93, Pulse 93, Resp 19, Temp 97.8, (Temporal), Pain 5, O2 Sat 98, on Room Air, Time 07/13/2016 22:14. (22:14 KASA) PREVIOUS VISIT ALLERGIES: aspirin, iodine. (SatJul 13, 2016 22:13 KASA) aspirin, iodine. (22:18 KASA) KNOWN ALLERGIES aspirin iodine CURRENT MEDICATIONS Ranexa: TABLET, EXTENDED RELEASE 12 HR : Strength - 500 mg : ORAL Patient Dose: 2 tab(s) Oral 3 times a day. (22:25 KASA) Tylenol-Codeine #3: TABLET : Strength - 300 mg-30 mg : ORAL Patient Dose: 1 tab(s) Oral every 4 hours prn. (22:47 KASA) calcium acetate: TABLET : Strength - 667 mg : ORAL Patient Dose: 2 tab(s) Oral 3 times a day. (22:50 KASA) Coreg: TABLET : Strength - 12.5 mg : ORAL Patient Dose: 1 tab(s) Oral 2 times a day. (22:50 KASA) Procrit: VIAL (ML) : Strength - 10,000 unit/mL : INJECTION Patient Dose: 6000 units Subcutaneous.7 day for &a-1R&a+25V*p+0X*e4204O*c152B*c15G*c2P*p-0X&a-25V&a+1RName: Ministerio Vanegas : 1965 M50 MedRec: [id number] AcctNum: [id number] Prepared: Sat Jul 14, 2016 00:58 by Interface Page [address] [facility] EMERGENCY RECORD hemodialysis -states hasn't started yet. (22:52 KASA) Imdur: TABLET, EXTENDED RELEASE 24 HR : Strength - 60 mg : ORAL Patient Dose: 1 tab(s) Oral once a day. (22:52 KASA) Nitrostat: TABLET, SUBLINGUAL : Strength - 0.4 mg : SUBLINGUAL Patient Dose: 1 tab(s) Sublingual.q5 min PRN up to 3 tabs. (22:53 KASA) Crestor: TABLET : Strength - 20 mg : ORAL Patient Dose: 1 tab(s) Oral once a day (at bedtime). (22:54 KASA) Entresto: Patient Dose: 1.1 tab (24.5/25.5) 2 times a day. (22:55 KASA) VITAL SIGNS VITAL SIGNS: BP: 157/93, Pulse: 93, Resp: 19, Temp: 97.8 (Temporal), Pain: 5, O2 sat: 98 on Room Air, Time: 07/13/2016 22:14. (22:14 KASA) BP: 156/94, Pulse: 88, Resp: 17, O2 sat: 99 on Room Air, Time: 07/13/2016 22:30. (22:30 KASA) BP: 156/96, Pulse: 85, Resp: 14, O2 sat: 99 on Room Air, Time: 07/13/2016 23:00. (23:00 KASA) BP: 152/101, Pulse: 86, Resp: 14, O2 sat: 97 on Room Air, Time: 07/13/2016 23:30. (23:30 KASA) BP: 149/95, Pulse: 86, Resp: 17, O2 sat: 97 on Room Air, Time: 07/14/2016 00:00. (Sat Jul 14, 2016 00:00 KASA) BP: 140/84, Pulse: 84, Resp: 15, Temp: 97.9 (Temporal), Pain: 5, O2 sat: 95 on Room Air, Time: 07/14/2016 00:30. (Sat Jul 14, 2016 00:30 KASA) NURSING ASSESSMENT: CARDIOVASCULAR (22:19 KASA) CONSTITUTIONAL: Patient arrives ambulatory, Gait steady, History obtained from patient, Patient appears, uncomfortable, Patient cooperative, Patient alert, Oriented to person, place and time, Skin warm, Skin dry, Skin normal in color, Mucous membranes pink, Mucous membranes moist, Patient complains of SOB, GUY with ringing in the ears, SOB with ringing in ears, dry cough, started this afternoon. Was seen last week for chest pain. CARDIOVASCULAR: Cardiovascular assessment findings include heart rate normal, Heart rhythm normal sinus, Heart sounds normal, Associated with dyspnea, with exertion, States he became SOB when going outside to feed the dog, Associated with dizziness, described as patient spinning, no associated edema, Notes: Hx of HF. RESPIRATORY/CHEST: Lungs auscultated, Breath sounds diminished, Respiratory assessment findings include respiratory effort easy, Respirations regular, Conversing normally, Neck and chest exam findings include trachea midline, Chest expansion equal, Chest movement symmetrical, no signs of distress, Associated with cough, dry, no associated fever. &a-1R&a+25V*p+0X*y7406C*c152B*c15G*c2P*p-0X&a-25V&a+1RName: Ministerio Vanegas : 1965 M50 MedRec: [id number] AcctNum: [id number] Prepared: Sat Jul 14, 2016 00:58 by Interface Page [address] [facility] EMERGENCY RECORD SAFETY: Side rails up, Cart/Stretcher in lowest position, Call light within reach, Hospital ID band on. NURSING ASSESSMENT: TUBES AND PORTS (22:34 KASA) TUBES AND PORTS: Dialysis shunt present, to Left upper arm, with thrill, No signs of infection at shunt site, Notes: Pt reports Dialysis on , , & Sat. SAFETY: Side rails up, Cart/Stretcher in lowest position, Family at bedside, Call light within reach, Hospital ID band on. NURSING PROCEDURE: BEDSIDE RADIOLOGY (22:34 KASA) PATIENT IDENTIFIER: Patient actively involved in identification process, Patient's identity verified by patient stating name, Patient's identity verified by patient stating date. BEDSIDE RADIOLOGY: Bedside radiology performed by Elizabeth, Portable chest x-ray performed. SAFETY: Side rails up, Cart/Stretcher in lowest position, Family at bedside, Call light within reach, Hospital ID band on. NURSING PROCEDURE: ANTIQUE JEWELRY REPAIRER (22:18 MBOS) PATIENT IDENTIFIER: Patient actively involved in identification process, Patient's identity verified by patient stating name, Patient's identity verified by patient stating date, Patient's identity verified by hospital ID bracelet. ANTIQUE JEWELRY REPAIRER: Cardiac monitoring indicated for complaint of chest pain, Cardiac monitoring indicated for SOB, Patient placed on hop picker, with no ST segment changes, Patient placed on non-invasive blood pressure monitor, with disposable blood pressure cuff applied, Patient placed on continuous pulse oximetry, Adult/pediatric oxisensor applied, Oxygen saturation 100%. SAFETY: Side rails up, Cart/Stretcher in lowest position, Family at bedside, Call light within reach, Hospital ID band on. NURSING PROCEDURE: COMMUNICATIONS COMMUNICATIONS: Physician, Reason for notification Cardiology Consult, Returned call at 2318, ERMD requested consult for patient. (23:18 KASA) Admissions department, Person contacted Marcy in [facility], [place] requesting consult with on-call dental insurance biller. Pt with hx of CHF, Diabetes, End Stage Renal Failure and on dialysis 3x per week (, , and Sat). Requesting input transfer/inpatient vs. d/c with dialysis in AM. (23:10 [facility]) NURSING PROCEDURE: DISCHARGE NOTE (Sat Jul 14, 2016 00:46 KASA) DISCHARGE: Patient discharged to home, ambulating without assistance, family driving, accompanied by //partner, Summary of Care printed/ provided, Discharge instructions given to patient, Discharge instructions given to Anel Vanegas -spouse, Simple or moderate discharge teaching performed, . Educated and provided handout regarding diagnosis of: Tinnitis &a-1R&a+25V*p+0X*k8674M*c152B*c15G*c2P*p-0X&a-25V&a+1RName: Ministerio Vanegas : 1965 M50 MedRec: [id number] AcctNum: [id number] Prepared: Sat Jul 14, 2016 00:58 by Interface Page [address] [facility] EMERGENCY RECORD Follow up with PCP in as needed. Return if chest pain recurs., Above person(s) verbalized understanding of discharge instructions and follow-up care. BELONGINGS: Belongings and valuables with patient upon arrival to the Emergency Department include:, Belongings and valuables with patient at time of discharge include:, Belongings remain with patient, Valuables remain with patient. SAFETY: Side rails up, Cart/Stretcher in lowest position, Family at bedside, Call light within reach, Hospital ID band on. NURSING PROCEDURE: EKG CHART (22:20 MBOS) PATIENT IDENTIFIER: Patient actively involved in identification process, Patient's identity verified by patient stating name, Patient's identity verified by patient stating date, Patient's identity verified by hospital ID bracelet. EKG: EKG indicated for complaint of chest pain, EKG indicated for SOB, 12 lead EKG performed on the left chest, first EKG. FOLLOW-UP: After procedure, EKG for interpretation given to Dr. Hamilton. SAFETY: Side rails up, Cart/Stretcher in lowest position, Family at bedside, Call light within reach, Hospital ID band on. NURSING PROCEDURE: IV (22:25 MBOS) PATIENT IDENITIFIER: Patient actively involved in identification process, Patient's identity verified by patient stating name, Patient's identity verified by patient stating date, Patient's identity verified by hospital ID bracelet. IV SITE 1: IV therapy indicated for medication administration, IV established, to the right antecubital, using a 20 gauge catheter, in one attempt, Saline lock established, Flushed with normal saline (mls): 10, Labs drawn at time of placement, labeled in the presence of the patient and sent to lab. SAFETY: Side rails up, Cart/Stretcher in lowest position, Family at bedside, Call light within reach, Hospital ID band on. NURSING PROCEDURE: LAB DRAW ([facility] Jul 14, 2016 00:01 KELLY) PATIENT IDENTIFIER: Patient actively involved in identification process, Patient's identity verified by patient stating name, Patient's identity verified by patient stating date. LAB DRAW: Lab draw indicated for obtaining specimens for evaluation, Subsequent lab draw performed, from vascular access device, existing IV site, R AC, After labs drawn, device flushed with saline, amount (mL) 10, Lab specimens labeled in the presence of the patient and sent to lab. SAFETY: Side rails up, Cart/Stretcher in lowest position, Call light within reach, Hospital ID band on. ORDER DETAILS Order Name: ANTIQUE JEWELRY REPAIRER ED, Status: Done, Time: 22:31 07/13/2016, User: JOSE, &a-1R&a+25V*p+0X*x6219R*c152B*c15G*c2P*p-0X&a-25V&a+1RName: Ministerio Vanegas : 1965 M50 MedRec: [id number] AcctNum: [id number] Prepared: [facility] Jul 14, 2016 00:58 by Interface Page [address] [facility] EMERGENCY RECORD - Ordered for: MD Hamilton Stanley, - Entered by: MD Hamilton Stanley - Fri Jul 13, 2016 22:22, - Quantity: 1, Order Name: Cardiac Profile w/CKMB & Troponin - I, Status: Active, Time: 22:21 07/13/2016, User: CHANTEL, - Ordered for: MD Hamilton Stanley, - Entered by: MD Hamilton Stanley - Fri Jul 13, 2016 22:21, - Quantity: 1, Order Name: Cardiac Profile w/CKMB & Troponin - I, Status: Active, Time: 23:53 07/13/2016, User: KELLY, - Ordered for: MD Hamilton Stanley, - Entered by: ML Robertson, [facility] Jul 13, 2016 23:53, - Quantity: 1, Order Name: CBC with Differential, Status: Active, Time: 22:21 07/13/2016, User: CHANTEL, - Ordered for: MD Hamilton Stanley, - Entered by: MD Hamilton Stanley - Fri Jul 13, 2016 22:21, - Quantity: 1, Order Name: Comprehensive Metabolic Panel, Status: Active, Time: 22:21 07/13/2016, User: CHANTEL, - Ordered for: MD Hamilton Stanley, - Entered by: MD Hamilton Stanley - Fri Jul 13, 2016 22:21, - Quantity: 1, Order Name: EKG 12 Lead in Emergency Room, Status: Active, Time: 22:22 07/13/2016, User: CHANTEL, - Ordered for: MD Hamilton Stanley, - Entered by: MD Hamilton Stanley - Fri Jul 13, 2016 22:22, - Quantity: 1, Order Name: XR Chest 1 View Portable, Status: Active, Time: 22:22 07/13/2016, User: CHANTEL, - Ordered for: MD Hamilton Stanley, - Entered by: MD Hamilton Stanley - Fri Jul 13, 2016 22:22, - Quantity: 1. MEDICATION ADMINISTRATION SUMMARY Drug Name: [place], Dose Ordered: 1 tab(s), Route: Oral, Status: Given, Time: 00:42 07/14/2016, Drug Name: Zofran intravenous, Dose Ordered: 4 mg, Route: IV Push, Status: Given, Time: 00:06 07/14/2016, Drug Name: Lasix injection, Dose Ordered: 80 mg, Route: IV Push, Status: Given, Time: 23:15 07/13/2016, Drug Name: meclizine oral, Dose Ordered: 1 cap(s), Route: Oral, Status: Given, Time: 22:30 07/13/2016, Detailed record available in Medication Service section. MEDICATION SERVICE Lasix injection: Order: Lasix injection (furosemide) - Dose: 80 mg : IV Push Schedule: Now Ordered by: Oscar Hamilton MD &a-1R&a+25V*p+0X*r5241H*c152B*c15G*c2P*p-0X&a-25V&a+1RName: Minsiterio Vanegas : 1965 M50 MedRec: [id number] AcctNum: [id number] Prepared: Sat Jul 14, 2016 00:58 by Interface Page [address] [facility] EMERGENCY RECORD Entered by: Oscar Hamilton MD SatJul 13, 2016 23:05 , Acknowledged by: Cynthia Robertson RN SatJul 13, 2016 23:10 Documented as given by: Cynthia Robertson RN SatJul 13, 2016 23:15 Patient, Medication, Dose, Route and Time verified prior to administration. Amount given: 80 mg, IV SITE #1 IVP, initial medication, Slowly, Catheter placement confirmed via flush prior to administration, IV site without signs or symptoms of infiltration during medication administration, No swelling during administration, No drainage during administration, IV flushed after administration, Correct patient, time, route, dose and medication confirmed prior to administration, Patient advised of actions and side-effects prior to administration, Allergies confirmed and medications reviewed prior to administration, Patient in position of comfort, Side rails up, Cart in lowest position, Family at bedside. meclizine oral: Order: meclizine oral (meclizine HCl) - Dose: 1 cap(s) : Oral Schedule: Now Ordered by: Oscar Hamilton MD Entered by: Oscar Hamilton MD SatJul 13, 2016 22:23 , Acknowledged by: Cynthia Robertson RN SatJul 13, 2016 22:30 Documented as given by: Cynthia Robertson RN SatJul 13, 2016 22:30 Patient, Medication, Dose, Route and Time verified prior to administration. Amount given: 1 cap, Site: Medication administered P.O., Correct patient, time, route, dose and medication confirmed prior to administration, Patient advised of actions and side-effects prior to administration, Allergies confirmed and medications reviewed prior to administration, Patient in position of comfort, Side rails up, Cart in lowest position, Family at bedside. [place]: Order: [place] (hydrocodone bitartrate/acetaminophen) - Dose: 1 tab(s) : Oral Schedule: Now Ordered by: Oscar Hamilton MD Entered by: Oscar Hamilton MD Sat Jul 14, 2016 00:37 , Acknowledged by: Cynthia Robertson RN Sat Jul 14, 2016 00:42 Documented as given by: Cynthia Robertson RN Sat Jul 14, 2016 00:42 Patient, Medication, Dose, Route and Time verified prior to administration. Amount given: 1 tab, Site: Medication administered P.O., Correct patient, time, route, dose and medication confirmed prior to administration, Patient advised of actions and side-effects prior to administration, Allergies confirmed and medications reviewed prior to administration, Patient in position of comfort, Side rails up, Cart in lowest position, Family at bedside, 1 tab of 10/325 mg [place]. Zofran intravenous: Order: Zofran intravenous (ondansetron HCl) - Dose: 4 mg : IV Push Schedule: Now Ordered by: Oscar Hamilton MD Entered by: Oscar Hamilton MD Sat Jul 14, 2016 00:04 , Acknowledged by: Cynthia Robertson RN Sat Jul 14, 2016 00:05 &a-1R&a+25V*p+0X*d6704A*c152B*c15G*c2P*p-0X&a-25V&a+1RName: Ministerio Vanegas : 1965 M50 MedRec: [id number] AcctNum: [id number] Prepared: Sat Jul 14, 2016 00:58 by Interface Page [address] [facility] EMERGENCY RECORD Documented as given by: Cynthia Robertson RN Sat Jul 14, 2016 00:06 Patient, Medication, Dose, Route and Time verified prior to administration. Amount given: 4 mg, Catheter placement confirmed via flush prior to administration, IV site without signs or symptoms of infiltration during medication administration, No swelling during administration, No drainage during administration, IV flushed after administration, Correct patient, time, route, dose and medication confirmed prior to administration, Patient advised of actions and side-effects prior to administration, Allergies confirmed and medications reviewed prior to administration, Patient in position of comfort, Side rails up, Cart in lowest position. HPI SHORTNESS OF BREATH (22:24 SHAN) CHIEF COMPLAINT: Patient presents for evaluation of shortness of breath. HISTORIAN: History provided by patient, Relates that dog had tangled its chain around him. He developed some shortness of breath and brief chest pain. Then ears started ringing. Came in for evaluation. Chest pain was vague. Smoked in the past. SEVERITY: Maximum severity of symptoms moderate, Currently symptoms are mild. ROS (22:25 SHAN) CONSTITUTIONAL: Negative constitutional review of systems. EYES: Negative eye review of systems. ENT: Negative ears, nose, throat review of systems. CARDIOVASCULAR: Negative cardiovascular review of systems. RESPIRATORY: Historian reports shortness of breath. GI: Negative gastrointestinal review of systems. MUSCULOSKELETAL: Negative musculoskeletal review of systems. SKIN: Negative skin review of systems. NEUROLOGIC: Negative neurologic review of systems. NOTES: All systems reviewed, negative except as described above. PAST MEDICAL HISTORY (:18 KASA) MEDICAL HISTORY: Flu vaccine up to date, Past medical history includes cardiac history, cardiomyopathy, congestive heart failure, valvular heart disease, mitral valve regurgitation, Cardiac Cath on 07/05/2016; Ischemic Cardiomyopathy; Latest EF -35-40%, Past medical history includes history of diabetes, Type II, Past medical history includes gastrointestinal disease, Hepatitis C, Past medical history includes history of hyperlipidemia, high cholesterol, currently being treated, Past medical history includes history of hypertension, which has been treated, Patient is compliant, Past medical history includes pulmonary disease, Lung collapsed, Past medical history includes renal disease, end stage renal disease. MALE SURGICAL HISTORY: BENIGN MASS REMOVED FROM ABD, LT HAND SX, Surgical history of appendectomy, Surgical history of &a-1R&a+25V*p+0X*q7780K*c152B*c15G*c2P*p-0X&a-25V&a+1RName: Ministerio Vanegas : 1965 M50 MedRec: [id number] AcctNum: [id number] Prepared: Sat Jul 14, 2016 00:58 by Interface Page [address] [facility] EMERGENCY RECORD cholecystectomy, Surgical history of hernia repair. PSYCHIATRIC HISTORY: No previous psychiatric history. SOCIAL HISTORY: Patient drinks socially, rarely, Patient denies drug use, Patient has no smoking history. PHYSICAL EXAM (22:25 SHAN) CONSTITUTIONAL: Patient afebrile, Pulse normal, Blood pressure normal, Respiratory rate normal, Normal pulse oximetry, Patient appears non toxic, Patient appears pain free, Patient alert and oriented to person, place and time, Nursing notes reviewed. HEAD: Head exam included findings of head atraumatic, normocephalic. EYES: Eye exam included findings of eyelids normal to inspection, Pupils equally round and reactive to light, Extraocular muscles intact. ENT: Pharynx exam normal, Uvula exam normal, Tonsil exam normal. NECK: Neck exam included findings of normal range of motion, Trachea midline. RESPIRATORY CHEST: Mild diffuse decreased breath sounds, consistent with old emphysema. CARDIOVASCULAR: Cardiovascular exam included findings of heart rate regular rate and rhythm, Heart sounds normal. ABDOMEN MALE: Abdominal exam included findings of abdomen nontender, Bowel sounds normal. BACK: Back exam normal. UPPER EXTREMITY: Upper extremity exam included findings of inspection normal, Range of motion normal. NEURO: Neuro exam normal. SKIN: Skin exam normal. EVENTS TRANSFER: Triage to Emergency Emergency Room -02. (SatJul 13, 2016 22:13 KASA) Removed from Emergency Emergency Room -02. (SatJul 14, 2016 00:55 KASA) DOCTOR NOTES TEXT: Eventually was able to have the heart cath accessed; 06-29-2016: "Left main stenosis-30%; Lad proximal 50%; Global hypokinesis. EF 35-40%" "CAD appears to have actually improved since last cath in 2014.". (23:38 SHAN) Chest x-ray with increased fluid. Is due for dialysis in am tomorrow. Has had recent cardiac cath. Has documented ejection fraction of about 35 to 40%. Has dialysis shunt in left arm. Hypertension, diabetes, ischemic cardiomyopathy, chronic systolic, chf and hyperlipidemia. Still makes some urine. Discussed the cause apparent. Will give a moderately large Lasix dose. Believe he will do ok with this and instructions to return earlier if needed. Discussed with dental insurance biller almond grinder at [place]; discussed the elevated troponin; but the renal failure and recent heart cath. Plan to recheck troponin &a-1R&a+25V*p+0X*g7733Z*c152B*c15G*c2P*p-0X&a-25V&a+1RName: Ministerio Vanegas : 1965 M50 MedRec: [id number] AcctNum: [id number] Prepared: Sat Jul 14, 2016 00:58 by Interface Page [address] [facility] EMERGENCY RECORD to evaluate for changes; if higher; send back to [place]. If not, then allow to proceed with dialysis in am. (Dr. Alfaro). Sensitive to aspirin per his history. (23:00 SHAN) Repeat troponin and ckmb even a little better; no chest pain per patient. Will allow to go home with stressed importance of return if chest pain occurs. Risks also discussed as were the option of transferring to [place]. ([facility] Jul 14, 2016 00:34 SHAN) DATA REVIEWED: Lab data reviewed, Xray data reviewed, Reviewed EKG, Old records obtained, Old records reviewed. (23:00 SHAN) PROBLEM LIST No recorded problems DIAGNOSIS ([facility] Jul 14, 2016 00:37 SHAN) FINAL: PRIMARY: tinnitis, ADDITIONAL: chronic systolic chf, elevated troponin, stable; recent cardiac cath and discussion with cardiology, renal failure, chronic, SHORTNESS OF BREATH. DISPOSITION PATIENT: Disposition Type: Discharge, Disposition: *Discharge Home. ([facility] Jul 14, 2016 00:37 SHAN) Patient left the department. ([facility] Jul 14, 2016 00:55 KASA) INSTRUCTION ([facility] Jul 14, 2016 00:39 SHAN) DISCHARGE: CHF, GENERAL. FOLLOWUP: Obdulio CHARLES, [facility], [address], [facility] [id number], [id number]. SPECIAL: 1. return if chest pain recurs 2. try to get into dialysis earlier 3. rest the rest of the night if possible. PRESCRIPTION No recorded prescriptions ADMIN ([facility] Jul 14, 2016 00:39 SHAN) DIGITAL SIGNATURE: MD Hamilton Stanley. RESULTS RADIOLOGY: XR Chest 1 View Portable Observe DT: SatJul 13, 2016 22:24, CXRP CHEST PORTABLE ONE VIEW 07/13/16 COMPARISON: Prior chest one portable view dated June 29, 2016. FINDINGS: There is persistent moderate cardiomegaly with moderate pulmonary vascular congestion. There is mild &a-1R&a+25V*p+0X*z2660S*c152B*c15G*c2P*p-0X&a-25V&a+1RName: Ministerio Vanegas : 1965 M50 MedRec: [id number] AcctNum: [id number] Prepared: [facility] Jul 14, 2016 00:58 by Interface Page [address] [facility] EMERGENCY RECORD bilateral interstitial opacities. No pleural effusion is evident. No acute osseous abnormality is e vident. IMPRESSION: Findings most suspicious for mild CHF or fluid overload. POS: [facility] . (23:06 SHAN) LABORATORY: CBC with Differential Collection DT: SatJul 13, 2016 22:37, White Blood Cell (WBC) Count 8.9 thou/uL, Range (4.8-10.8), *Red Blood Cell (RBC) Count 3.53 - L mill/uL, Range (4.70-6.10), *Hemoglobin 10.9 - L g/dL, Range (14.0-18.0), *Hematocrit 34.4 - L %, Range (42.0-52.0), *Mean Corpuscular Volume 97.4 - H fl, Range (80.0-94.0), Mean Corpuscular Hemoglobin 31.0 pg, Range (27.0-31.0), *Mean Corpuscular HGB CONC 31.8 - L g/dL, Range (32.0-36.0), *RBC Distribution Width 14.9 - H %, Range (11.5-14.5), Platelet Count 151 thou/uL, Range (130-400), Mean Platelet Volume 8.9 fL, Range (7.4-10.4), *%Neutrophils 78.8 - H %, Range (42.0-75.0), *%Lymphocytes 11.1 - L %, Range (21.0-51.0), %Monocytes 7.4 %, Range (0.0-10.0), %Eosinophils 1.8 %, Range (0.0-10.0), %Basophils 0.9 %, Range (0.0-1.0), *#Neutrophils 7.0 - H thou/uL, Range (1.40-6.50), *#Lymphocytes 1.0 - L thou/uL, Range (1.20-3.40), *#Monocytes 0.7 - H thou/uL, Range (0.11-0.59), #Eosinphils 0.2 thou/uL, Range (0.0-0.7), #Basophils 0.1 thou/uL, Range (0.0-0.2). (22:47 [facility]) Cardiac Profile w/CKMB & TropI Collection DT: SatJul 13, 2016 22:37, CKMB 2.2 ng/mL, Range (0-6.6), *Troponin I 0.051 - H ng/mL, Range (< 0.028), Reference Range , 0.00 - 0.028 ng/mL Negative 0.029 - 0.29 ng/mL , Indeterminate Greater or Equal to 0.3 ng/mL Strongly suggests MD , . (23:03 [facility]) Comprehensive Metabolic Panel Collection DT: SatJul 13, 2016 22:37, *Sodium 134 - L mmol/L, Range (136-145), Potassium 4.5 mmol/L, Range (3.5-5.1), *Chloride 90 - L mmol/L, Range (98-107), *Carbon Dioxide 31 - H mmol/L, Range (22-29), Anion Gap 18 mmol/L, Range (10-20), *BUN (Urea Nitrogen) 37 - H mg/dL, Range (8.4-25.7), *Creatinine 7.22 - H mg/dL, Range (0.7-1.3), &a-1R&a+25V*p+0X*s0426K*c152B*c15G*c2P*p-0X&a-25V&a+1RName: Ministerio Vanegas : 1965 M50 MedRec: [id number] AcctNum: [id number] Prepared: Sat Jul 14, 2016 00:58 by Interface Page [address] [facility] EMERGENCY RECORD Estimated GFR-MDRD 8 , Reference Range for Estimated GFR: Greater than 90, mL/min/1.73 m2 NOTE: The MDRD equation has not been validated for use, with the elderly (over 70 years of age), women, patients with, serious comorbid condition or persons with extremes of body size, muscle, mass, or nutritional status. , *Glucose 136 - H mg/dL, Range (70-105), Calcium 8.5 mg/dL, Range (7.8-10.44), Bilirubin, Total 0.7 mg/dL, Range (0.2-1.2), Protein, Total 7.1 g/dL, Range (6.0-8.3), NOTE: Plasma values are generally 0.3 to 0.5 g/dL higher than serum values, due to the presence of fibrinogen. , Albumin 3.9 g/dL, Range (3.5-5.0), Globulin 3.2 g/dL, Range (2.4-3.5), Alb/Glob Ratio 1.2 g/dL, Range (1.2-2.2), Alkaline Phosphatase 46 U/L, Range (40-150), AST (SGOT) 12 U/L, Range (5-34), ALT (SGPT) 8 U/L, Range (0-55). (23:03 CHANTEL) Wilkerson: KELLY=ML Robertson, Cynthia GARCIA=ML Perez, Sally GOLDEN=MD Joy, Oscar &a-1R&a+25V*p+0X*[id number]*c152B*c15G*c2P*p-0X&a-25V&a+1RName: Ministerio Vanegas : 1965 M50 MedRec: [id number] AcctNum: [id number] Prepared: Sat Jul 14, 2016 00:58 by Interface Page 11 of 11 pMD MTDD
== END 2016-07-14 00:46 | disposition home or self-care (01) ==
LOC: NAV ERS 22:10
DX: R06.02 Shortness of breath (principal); I13.2 Hypertensive heart and chronic kidney disease with heart failure and with stage 5 chronic kidney disease, or end stage renal disease; I50.22 Chronic systolic (congestive) heart failure; N18.6 End stage renal disease; H93.13 Tinnitus, bilateral; E78.5 Hyperlipidemia, unspecified; E11.9 Type 2 diabetes mellitus without complications
CPT/HCPCS: 71010; 80053; 82553; 84484; 85025; 93005; 96374; 96375; J1940; J2405

== ENCOUNTER 2016-09-30 16:41 | Emergency (ER) | payer OTHER, MEDICARE ==
[2016-09-30 17:34] LABS: #Basophils 0.1 thou/uL (0.0-0.2); #Eosinphils 0.3 thou/uL (0.0-0.7); #Lymphocytes 0.5 thou/uL (1.20-3.40); #Neutrophils 7.6 thou/uL (1.40-6.50); %Basophils 0.7 % (0.0-1.0); %Eosinophils 2.8 % (0.0-10.0); %Lymphocytes 5.5 % (21.0-51.0); %Monocytes 10.6 % (0.0-10.0); %Neutrophils 80.3 % (42.0-75.0); Hemoglobin 11.6 g/dL (14.0-18.0); Mean Corpuscular HGB CONC 32.5 g/dL (32.0-36.0); Mean Corpuscular Hemoglobin 31.6 pg (27.0-31.0); Mean Platelet Volume 7.7 fL (7.4-10.4); Platelet Count 94 thou/uL (130-400); RBC Distribution Width 15.4 % (11.5-14.5); Red Blood Cell (RBC) Count 3.68 mill/uL (4.70-6.10); White Blood Cell (WBC) Count 9.4 thou/uL (4.8-10.8)
[2016-09-30 17:45] LABS: ALT (SGPT) 10 U/L (0-55); AST (SGOT) 12 U/L (5-34); Albumin 3.5 g/dL (3.5-5.0); Alkaline Phosphatase 69 U/L (40-150); Anion Gap 27 mmol/L (10-20); BUN (Urea Nitrogen) 82 mg/dL (8.4-25.7); Bilirubin, Total 0.8 mg/dL (0.2-1.2); Calc. Creatinine Clearance 0 mL/min (70-130); Calcium 7.4 mg/dL (7.8-10.44); Carbon Dioxide 17 mmol/L (22-29); Chloride 92 mmol/L (98-107); Estimated GFR-MDRD 4; Globulin 2.5 g/dL (2.4-3.5); Glucose 113 mg/dL (70-105); Potassium 4.8 mmol/L (3.5-5.1); Sodium 131 mmol/L (136-145)
[2016-09-30 17:47] LABS: CKMB 3.5 ng/mL (0-6.6); Troponin I 0.019 ng/mL (< 0.028)
--- NOTE | 2016-09-30 18:33 | RAD ---
PORTABLE CHEST: History: Chest pain. Comparison: 07-13-16 FINDINGS: Lung padilla are clear. No evidence of infiltrate. No evidence of vascular congestion. Heart size upp er normal. There is gas density under the right hemidiaphragm. While this could potentially reside in bowel, I cannot exclude pre intraperitoneal air on this study. Recommend clinical correlation. IMPRESSION: 1. No acute lung or chest abnormality. 2. Question air under the right hemidiaphragm. Free intraperitoneal air cannot be excluded on this s homero projection. Findings relayed to the [facility] at the time of dictation. Code CR POS: ROSITA
[2016-09-30 19:17] LABS: Troponin I 0.016 ng/mL (< 0.028)
[2016-09-30 21:00] LABS: Troponin I 0.019 ng/mL (< 0.028)
== END 2016-09-30 21:20 | disposition home or self-care (01) ==
LOC: NAV ERS 16:41
DX: R07.9 Chest pain, unspecified (principal); M25.512 Pain in left shoulder; E11.9 Type 2 diabetes mellitus without complications; E78.5 Hyperlipidemia, unspecified; E78.00 Pure hypercholesterolemia, unspecified; I11.0 Hypertensive heart disease with heart failure; I50.9 Heart failure, unspecified; Z79.899 Other long term (current) drug therapy; Z79.891 Long term (current) use of opiate analgesic
CPT/HCPCS: 71010; 80053; 82553; 83880; 84484; 85025; 93005

== ENCOUNTER 2017-02-05 23:40 | Emergency (ER) | payer OTHER, MEDICARE ==
[2017-02-06] MEDS ORDERED: Lorazepam 2 MG/ML VIAL ONE (00:07)
[2017-02-06 00:16] LABS: #Basophils 0.1 thou/uL (0.0-0.2); #Eosinphils 0.2 thou/uL (0.0-0.7); #Lymphocytes 2.3 thou/uL (1.20-3.40); #Monocytes 0.8 thou/uL (0.11-0.59); %Basophils 0.8 % (0.0-1.0); %Eosinophils 1.9 % (0.0-10.0); %Monocytes 6.7 % (0.0-10.0); %Neutrophils 70.7 % (42.0-75.0); Mean Corpuscular HGB CONC 35.8 g/dL (32.0-36.0); Mean Corpuscular Hemoglobin 33.3 pg (27.0-31.0); Mean Corpuscular Volume 93.2 fl (80.0-94.0); Mean Platelet Volume 8.5 fL (7.4-10.4); Platelet Count 149 thou/uL (130-400); RBC Distribution Width 13.6 % (11.5-14.5); Red Blood Cell (RBC) Count 3.29 mill/uL (4.70-6.10); White Blood Cell (WBC) Count 11.3 thou/uL (4.8-10.8)
[2017-02-06 00:45] LABS: ALT (SGPT) 16 U/L (8-55); AST (SGOT) 18 U/L (5-34); Albumin 4.2 g/dL (3.5-5.0); Alkaline Phosphatase 77 U/L (40-150); Anion Gap 25 mmol/L (10-20); BUN (Urea Nitrogen) 57 mg/dL (8.4-25.7); Bilirubin, Total 0.8 mg/dL (0.2-1.2); Calc. Creatinine Clearance 0 mL/min (70-130); Calcium 8.6 mg/dL (7.8-10.44); Carbon Dioxide 21 mmol/L (22-29); Chloride 88 mmol/L (98-107); Estimated GFR-MDRD 3; Globulin 3.9 g/dL (2.4-3.5); Glucose 334 mg/dL (70-105); Potassium 3.1 mmol/L (3.5-5.1); Protein, Total 8.1 g/dL (6.0-8.3); Sodium 131 mmol/L (136-145); Troponin I 0.031 ng/mL (< 0.028)
--- NOTE | 2017-02-06 08:22 | RAD ---
CHEST 1 VIEW PORTABLE: Date: 02/06/17 INDICATION: Shortness of breath and chest pain. COMPARISON: Chest 1 view dated 09/30/16. FINDINGS: There is free air under the right hemidiaphragm. Lungs are clear. No pneumothorax. IMPRESSION: Free air under the right hemidiaphragm. Given this appears similar to the 09/30/16 examination and may be artifactual, CT may be beneficial. POS: [facility]
== END 2017-02-06 02:40 | disposition home or self-care (01) ==
LOC: NAV ERS 23:40
DX: R07.9 Chest pain, unspecified (principal); R06.02 Shortness of breath; I13.2 Hypertensive heart and chronic kidney disease with heart failure and with stage 5 chronic kidney disease, or end stage renal disease; E11.22 Type 2 diabetes mellitus with diabetic chronic kidney disease; N18.6 End stage renal disease; I50.9 Heart failure, unspecified; E78.5 Hyperlipidemia, unspecified; Z87.891 Personal history of nicotine dependence
CPT/HCPCS: 36415; 71010; 80053; 82553; 83880; 84484; 85025; 93005; 96374; J2060

== ENCOUNTER 2018-02-25 14:00 | Emergency (ER) | payer MEDICARE ==
[2018-02-25] MEDS ORDERED: Lidocaine 1% 20 ML MDV ONE (14:15)
== END 2018-02-25 14:50 | disposition home or self-care (01) ==
LOC: NAV ERS 14:00
DX: A49.9 Bacterial infection, unspecified (principal); E11.9 Type 2 diabetes mellitus without complications; E78.5 Hyperlipidemia, unspecified; I13.2 Hypertensive heart and chronic kidney disease with heart failure and with stage 5 chronic kidney disease, or end stage renal disease; I50.9 Heart failure, unspecified; N18.6 End stage renal disease; Z87.891 Personal history of nicotine dependence; Z79.899 Other long term (current) drug therapy
CPT/HCPCS: 10060; 87070; 87205; J2001

== ENCOUNTER 2022-07-04 12:25 | Emergency (ER) | payer MEDICARE ==
[2022-07-04] MEDS ORDERED: Lidocaine 1% (PF) 30 ML VIAL ONE (12:59)
[2022-07-04] MEDS ORDERED: traMADol HCl 50 MG TAB ONE (13:08)
[2022-07-04] MEDS ORDERED: Boostrix 0.5 ML (Tdap) VIAL (>/=7 yrs of age) ONE (13:12)
[2022-07-04] MEDS ORDERED: Bacitracin 1 PK ONE (13:58)
== END 2022-07-04 14:14 | disposition home or self-care (01) ==
LOC: NAV ERS 12:25
DX: S61.411A Laceration without foreign body of right hand, initial encounter (principal); I11.0 Hypertensive heart disease with heart failure; I50.9 Heart failure, unspecified; E11.9 Type 2 diabetes mellitus without complications; E78.00 Pure hypercholesterolemia, unspecified; Z87.891 Personal history of nicotine dependence; Z79.899 Other long term (current) drug therapy; W27.0XXA Contact with workbench tool, initial encounter
CPT/HCPCS: 12042; 90471; 90715; J2001

== ENCOUNTER 2025-04-17 16:27 | Emergency (ER) | payer MEDICARE ==
[2025-04-17] MEDS ORDERED: Ondansetron PF 4 MG/2 ML Vial ONE (17:52)
[2025-04-17 18:06] LABS: Troponin I 0.035 ng/mL (< 0.028)
[2025-04-17 18:08] LABS: Anisocytosis SLIGHT = 6-15 cells (100X) (0-5/hpf); Hematocrit 36.9 % (42.0-52.0); Hemoglobin 12.3 g/dL (14.0-18.0); MDiff Complete? YES; Mean Corpuscular Hemoglobin 28.1 pg (27.0-31.0); Mean Corpuscular Volume 84.2 fl (78.0-98.0); Platelet Count 120 10x3/uL (130-400); Red Blood Cell (RBC) Count 4.38 mill/uL (4.70-6.10); White Blood Cell (WBC) Count 12.7 10x3/uL (4.8-10.8)
[2025-04-17 18:14] LABS: Anion Gap 17 mmol/L (10-20); BUN (Urea Nitrogen) 38 mg/dL (8.4-25.7); Calc. Creatinine Clearance 0 mL/min (70-130); Carbon Dioxide 29 mmol/L (23-31); Chloride 93 mmol/L (98-107); Potassium 3.7 mmol/L (3.5-5.1); Sodium 135 mmol/L (136-145)
[2025-04-17 18:15] LABS: ALT (SGPT) 9 U/L (Less than 45); AST (SGOT) 13 U/L (11-34); Albumin 3.2 g/dL (3.1-4.5); Alkaline Phosphatase 95 U/L (40-110); Bilirubin, Total 0.4 mg/dL (0.3-1.2); Calcium 8.4 mg/dL (7.8-10.44); Globulin 3.9 g/dL (2.4-3.5); Glucose 260 mg/dL (80-115); Lipase 56 U/L (8-78)
[2025-04-17] MEDS ORDERED: hydrALAZINE 20 MG/ML VIAL ONE (18:42)
== END 2025-04-17 21:03 | disposition short-term general hospital (02) ==
LOC: NAV ERS 16:27
DX: L02.211 Cutaneous abscess of abdominal wall (principal); I11.0 Hypertensive heart disease with heart failure; I50.9 Heart failure, unspecified; E11.9 Type 2 diabetes mellitus without complications; E78.00 Pure hypercholesterolemia, unspecified; Z87.891 Personal history of nicotine dependence; Z79.4 Long term (current) use of insulin; Z79.899 Other long term (current) drug therapy
CPT/HCPCS: 71045; 74176; 80053; 83690; 83880; 84484; 85025; 87428; 93005; J0360; J2270; J2405; J2543; J7030; 96365; 96375